=== PATIENT | male | born 2005 | race Two or more races ===

== ENCOUNTER 2023-10-16 17:34 | Emergency (ER) | payer OTHER, SELFPAY ==
--- NOTE | 2023-10-16 18:03 | ED_ITS ---
HPI - Chest Pain General Chief Complaint: Arrhythmia/Palpitations Stated Complaint: irregular heart beat Related Data Allergies Allergy/AdvReac Type Severity Reaction Status Date / Time amoxicillin Allergy Unknown Verified 10/16/23 18:07 [facility] Social History Social History Advance Directives: No Advance Directives Information Provided: No Physical Exam 2 Vital Signs: Vital Signs: Last Vital Signs Temp 96.8 F 10/16/23 18:05 Pulse 68 10/16/23 18:05 Resp 18 10/16/23 18:05 BP 110/75 10/16/23 18:05 Pulse Ox 99 10/16/23 18:05 O2 Del Method Room Air 10/16/23 18:05 BMI result Body Mass Index 20.5 Course Course Course Narrative: RME: 18 yo M w/ no sig PMHx presenting to the ED c/o palpitations & sharp substernal CP x today. constant when started, but now resolved. admits to assoc SOB EKG, labs, CXR ordered Full HPI, ROS and PE to be performed by primary ED provider. Medical Decision Making Lab Data 10/16/23 17:48 10/16/23 17:48 Labs: Lab Results 10/16/23 Range/Units 17:48 WBC 7.3 (4.8-10.8) X10*3/uL RBC 4.57 L (4.60-5.80) X10*6/uL Hgb 14.1 (14.0-18.0) g/dl Hct 38.9 L (42.0-52.0) % MCV 85.1 (80.0-98.0) fL MCH 30.9 (27.0-33.0) pg MCHC 36.2 H (31.0-36.0) g/dl RDW 11.8 (11.0-16.0) % Plt Count 233 (160-400) X10*3/uL MPV 9.9 (9.4-12.4) fL Immature Gran % (Auto) 0.1 (0.0-0.4) % Neut % (Auto) 57.7 (45-73) % Lymph % (Auto) 30.0 (20-40) % [place] % (Auto) 8.6 (2-11) % Eos % (Auto) 2.6 (0-4) % Baso % (Auto) 1.0 (0-2) % Lymph # (Auto) 2.2 (1.2-4.9) X10*3/uL [place] # (Auto) 0.6 (0.1-1.2) X10*3/uL Eos # (Auto) 0.2 (0.0-0.4) X10*3/uL Baso # (Auto) 0.1 (0.0-0.2) X10*3/uL Abs Immat Gran (auto) 0.01 (0.00-0.03) X10*3/uL Absolute Neuts (auto) 4.2 (2.0-8.3) x10*3/uL Absolute Nucleated RBC 0.000 (0.0-0.012) X10*3/uL Nucleated RBC % (auto) 0.0 (0.0-0.2) /100WBC Sodium 141 (135-145) mmol/L Potassium 4.0 (3.3-5.1) mmol/L Chloride 108 (96-108) mmol/L Carbon Dioxide 27 (22-29) mmol/L Anion Gap 10 L (12-20) BUN 14 (9-16) mg/dL Creatinine 0.81 (0.5-1.4) mg/dL Estim Creat Clear Calc 118.5 Estimated GFR > 60 Random Glucose 93 (60-115) mg/dL Calcium 9.5 (8.4-10.2) mg/dL Magnesium 2.0 (1.6-2.6) mg/dL Total Bilirubin 0.3 (0.0-1.0) mg/dL Direct Bilirubin 0.1 (0.0-0.5) mg/dL AST 19 (5-37) U/L ALT 11 (0-40) U/L Alkaline Phosphatase 101 (39-117) U/L Troponin I High Sens < 2.7 (<3.5-35.0) ng/L Total Protein 7.3 (6.5-8.0) g/dL Albumin 4.5 (3.5-5.0) g/dL TSH 1.50 (0.32-4.0) uIU/mL Discharge Plan Discharge Clinical Impression: Palpitations Patient Disposition: Left W/O Completing Treatment Stand Alone Forms: Against Medical Advice Discharge Date/Time: 10/16/23 21:31
[2023-10-16 18:05] VITALS: BP 110/75; PULSE 68; RESP 18; TEMP 36; O2SAT 99; BMI 20.5
--- NOTE | 2023-10-16 20:22 | PC.NURSE ---
Adjusting EMILIANA for labs/EKG/reassessment.
== END 2023-10-16 21:31 | disposition left against medical advice (07) ==
PROVIDERS: Emergency Provider Emergency Medicine
DX: R00.2 Palpitations (principal); R07.9 Chest pain, unspecified
CPT/HCPCS: 36415; 71045; 80048; 80076; 83735; 84443; 84484; 85025; 93005; 99283

== ENCOUNTER → 2023-10-16 17:36 | Outpatient (BNV) | payer OTHER, SELFPAY | PROVIDERS: Emergency Provider Emergency Medicine; Visit Provider Internal Medicine Cardiovascular Disease | DX: R07.9 Chest pain, unspecified (principal) | CPT/HCPCS: 93010 ==

== ENCOUNTER 2025-05-02 14:28 | Emergency (ER) | payer SELFPAY ==
--- NOTE | ~2025-05-02 | XR_ITS ---
CLINICAL HISTORY: cp 2 view chest x-ray Comparison: CR/SR - XR CHEST 2 VIEWS - 10/16/23 18:28 EST Findings: There is bronchial wall thickening. No consolidation, pleural effusion or pneumothorax. Normal size heart. No acute fracture. IMPRESSION: 1. Mild central bronchial wall thickening, which can be seen with asthma, reactive airways process or viral illness. 2. No superimposed infiltrate or consolidation. This document has been electronically signed by: Nasrin Figueroa DO on 05/02/2025 15:37:04
--- NOTE | 2025-05-02 14:31 | ECG_ITS ---
Test Reason : cp Blood Pressure : */* mmHG Vent. Rate : 101 BPM Atrial Rate : 101 BPM P-R Int : 122 ms QRS Dur : 80 ms QT Int : 310 ms P-R-T Axes : 77 94 23 degrees QTcB Int : 401 ms Sinus tachycardia Rightward axis Nonspecific T wave abnormality Abnormal ECG When compared with ECG of 16-Oct-2023 17:42, T wave inversion now evident in Inferior leads Nonspecific T wave abnormality now evident in Lateral leads Referred By: Generic ED Physician Electronically Signed By: Emil Eldridge
[2025-05-02 15:03] VITALS: BP 128/77; PULSE 102; RESP 16; TEMP 36.8; O2SAT 100; BMI 20.4
--- NOTE | 2025-05-02 15:04 | ED_ITS ---
HPI - Chest Pain General Chief Complaint: Chest Pain Stated Complaint: Chest pain Time Seen by Provider: 05/02/25 16:25 Source: patient Mode of arrival: ambulatory Limitations: no limitations History of Present Illness ED Provider: Angela Lewis PA-C HPI narrative: Patient is a 20 year old male with no past medical history presenting to ER on 05/02 with chief complaint of episodic fast heart rate, left sided chest pain, and epigastric pain since last night; ongoing issue for about 3 years. The episodes are associated with dizziness, shortness of breath, and they make him anxious. They last for about 1 minute at a time. He had 2 episodes last night and 1 episode today. He reports he has been getting these episodes multiple times per year for about 3 years. There tends to be a severe episode where the patient feels like he is going to once yearly, followed by less severe episodes in the following weeks, then will disappear for months at a time. He has never lost consciousness due to these episodes. Sometimes the episodes come on randomly, other times they seem to be triggered by exhaustion or stress. He notices that holding his breath and tensing his muscles help the symptoms go away. He has a PCP but does not follow regularly with them, PCP unaware and he has never had cardiology workup. He uses alcohol a few times per month. He has never vaped or smoked cigarettes. He has never used recreational drugs including cocaine. He denies any family history, other than fatal [place] in his paternal grandfather at an old age. He takes no medications. He denies nausea, vomiting, abdominal pain, diarrhea, genitourinary complaints, or any other symptoms. Timing of current episode: episodic Related Data Previous Rx's ?Medication ?Instructions ?Recorded prednisone 20 mg tablet 20 mg PO DAILY 7 days #7 tab s 05/02/25 Allergies Allergy/AdvReac Type Severity Reaction Status Date / Time amoxicillin Allergy Unknown Verified 05/02/25 15:05 Review of Systems 2 Constitutional: Constitutional: Reports as per HPI, Reports no additional constitutional complaints, Denies chills, Denies fever(s) and Denies night sweats Eyes: Eyes: Reports no additional eye complaints, Denies blurry vision, Denies change in vision, Denies diplopia, Denies eye discharge, Denies loss of vision and Denies eye pain ENT: Denies dizziness Cardiovascular: Cardiovascular: Reports no additional cardiovascular complaints, Reports chest pain (now resolved), Reports Epigastric Pain (now resolved), Reports lightheadedness (now resolved), Denies Loss of Consciousness and Reports dyspnea (now resolved) Respiratory: Respiratory: Reports no additional respiratory complaints and Reports dyspnea (now resolved) Gastrointestinal: Gastrointestinal: Reports no additional gastrointestinal complaints, Denies abdominal pain, Denies melena, Denies hematochezia, Denies change in bowel habits and Denies change in stool character Genitourinary: Genitourinary: Reports no additional male genitourinary complaints, Denies hematuria, Denies oliguria, Denies difficulty urinating, Denies dysuria, Denies urinary frequency, Denies urinary hesitancy, Denies urinary incontinence and Denies urinary urgency Musculoskeletal: Musculoskeletal: Reports no additional musculoskeletal complaints, Denies numbness and Denies tingling Neurologic: Denies dizziness, Denies loss of vision, Denies numbness and Denies tingling Psychiatric: Psychiatric: Reports no additional psychiatric complaints Endocrine: Endocrine: Reports no additional endocrine complaints Hematologic/Lymphatic: Hematologic/Lymphatic: Reports no additional hematologic/lymphatic complaints Allergic/Immunologic: Allergic/Immunologic: Reports no additional allergic/immunologic complaints [facility] Past Medical History Attestation statement: The following information was validated with the patient. Source: old records reviewed and nursing notes reviewed Social History Social History Unable to assess alcohol history related to: Unknown Advance Directives: No Advance Directives Information Provided: No Do you have a plan to hurt others: No Plan Physical Exam 2 Vital Signs: Vital Signs: Last Vital Signs Temp 97.8 F 05/02/25 17:59 Pulse 88 05/02/25 17:59 Resp 17 05/02/25 17:59 BP 123/81 05/02/25 17:59 Pulse Ox 98 05/02/25 17:59 O2 Del Method Room Air 05/02/25 17:59 BMI result Body Mass Index 20.4 Const: General: cooperative, no acute distress, alert, awake and anxious N utritional Appearance: well nourished Orientation/consciousness: patient oriented x3 HEENT: Head: Yes normal to inspection and Yes atraumatic Ears: hearing grossly normal bilaterally and external ears normal General nose exam: Normal external nose present, no nasal discharge noted and no epistaxis Face and sinus: Yes normal facial exam, No abrasion and No laceration Mouth: Normal oral and palatal mucosa present, no drooling and no muffled voice Eyes: General: appearance normal, both eyes and all related structures P eriorbital: periorbital findings normal Eyelids: Yes eyelids normal C onjunctivae: conjunctivae normal Pupils: Equal, round and reactive pupils present EOM: EOMs intact bilaterally Neck: Neck: Yes normal visual inspection, Yes full ROM and Yes no lymphadenopathy Resp: Effort & Inspection: normal respiratory effort and able to speak in complete sentences Auscultation: clear to auscultation bilaterally Cardio: Rate: regular rate Rhythm: regular rhythm Heart sounds: S1 normal heart sound present and S2 normal heart sound present Neuro: General: patient oriented x3, moves all extremities and CN's II-XI intact bilaterally Cranial nerves: Yes Equal, round and reactive pupils present Cognition (Neuro): normal cognition Extrem: General: Yes normal to inspection, Yes full ROM and Yes capillary refill normal Psych: Appearance: grossly normal Mental Status: mental status grossly normal Affect: normal affect Attitude: cooperative Thought process: N ormal thought process present Thought content: Normal thought content present Insight: Good insight present (Psych) Course Course Course Narrative: Micheline Mcnairmaria del rosario WAREHOUSE CLERK 05/02 6472 This is a rapid medical exam. Defer additional HPI, ROS, PE to primary provider. 20-year-old male healthy here with complaints of chest pain since last evening. Will obtain EKG, labs, CXR VSS Medical Decision Making Medical Decision Making MDM Narrative: Patient is a 20 year old assigned male at with no reported medical history presenting to the emergency department today with now resolved chest pain, lightheadedness, shortness of breath, and palpitations. Patient's physical exam was unremarkable. Patient's blood work was unremarkable. Patient's EKG was unremarkable. Patient's chest x-ray showed evidence of reactive airway disease vs. asthma. Patient's clinical presentation is most consistent with reactive airway disease. I explained my physical exam findings as well as all test results to the patient. I answered all questions asked by the patient. I stressed the importance of the patient taking his medication as directed (either prescribed or as the over the counter packaging recommends). I stressed the importance of the patient following up with his primary care provider. I stressed the importance of the patient returning to the emergency department immediately if his symptoms were to worsen or if he were to develop any dizziness, shortness of breath, difficulty breathing, chest pain, blurry vision, loss of vision, nausea, vomiting, abdominal pain, fever, chills, back pain, or any other complaints. Patient verbalized agreement and understanding with this treatment plan and discharge. Differential Diagnosis Differential Diagnoses: The differential diagnosis associated with the presentation includes Reactive airway disease Chest pain Atypical chest pain Admission/Observation Consideration of admission/observation: Escalation of care including admission/observation considered Patient would have been admitted to the hospital had his work up had any findings where hospital admission was appropriate and his clinical presentation warranted hospital admission. Lab Data [facility] Lab Attestation statement: I reviewed the patient's lab results. My interpretation of these results are in the [facility] Rationale portion of this note. 05/02/25 15:23 05/02/25 15:23 Labs: Lab Results 05/02/25 05/02/25 Range/Units 15:23 17:09 WBC 7.6 (4.8-10.8) X10*3/uL RBC 5.27 (4.60-5.80) X10*6/uL Hgb 16.2 (14.0-18.0) g/dl Hct 44.8 (42.0-52.0) % MCV 85.0 (80.0-98.0) fL MCH 30.7 (27.0-33.0) pg MCHC 36.2 H (31.0-36.0) g/dl RDW 11.9 (11.0-16.0) % Plt Count 273 (160-400) X10*3/uL MPV 9.6 (9.4-12.4) fL Immature Gran % (Auto) 0.1 (0.0-0.4) % Neut % (Auto) 66.2 (45-73) % Lymph % (Auto) 20.8 (20-40) % [place] % (Auto) 11.3 H (2-11) % Eos % (Auto) 0.9 (0-4) % Baso % (Auto) 0.7 (0-2) % Lymph # (Auto) 1.6 (1.2-4.9) X10*3/uL [place] # (Auto) 0.9 (0.1-1.2) X10*3/uL Eos # (Auto) 0.1 (0.0-0.4) X10*3/uL Baso # (Auto) 0.1 (0.0-0.2) X10*3/uL Abs Immat Gran (auto) 0.01 (0.00-0.03) X10*3/uL Absolute Neuts (auto) 5.1 (2.0-8.3) x10*3/uL Absolute Nucleated RBC 0.000 (0.0-0.012) X10*3/uL Nucleated RBC % (auto) 0.0 (0.0-0.2) /100WBC D-Dimer High Sensitivty < 150 NG/ML Sodium 141 (135-145) mmol/L Potassium 4.1 (3.3-5.1) mmol/L Chloride 106 (96-108) mmol/L Carbon Dioxide 25 (22-29) mmol/L Anion Gap 14 (12-20) BUN 13 (9-16) mg/dL Creatinine 0.88 (0.5-1.4) mg/dL Estim Creat Clear Calc 109.8 Estimated GFR > 60 Random Glucose 96 (60-115) mg/dL Calcium 9.8 (8.4-10.2) mg/dL Total Bilirubin 0.9 (0.0-1.0) mg/dL Direct Bilirubin 0.3 (0.0-0.5) mg/dL AST 26 (5-37) U/L ALT 18 (0-40) U/L Alkaline Phosphatase 104 (39-117) U/L Troponin I High Sens < 2.7 (<3.5-35.0) ng/L Total Protein 7.4 (6.5-8.0) g/dL Albumin 4.9 (3.5-5.0) g/dL Independent Interpretation I performed an independent interpretation of an: EKG and Plain X-Ray Interpretation: My interpretation is in agreement with the radiologist's impression of this imaging study. L CLINICAL HISTORY: cp 2 view chest x-ray Comparison: CR/SR - XR CHEST 2 VIEWS - 10/16/23 18:28 EST Findings: There is bronchial wall thickening. No consolidation, pleural effusion or pneumothorax. Normal size heart. No acute fracture. IMPRESSION: 1. Mild central bronchial wall thickening, which can be seen with asthma, reactive airways process or viral illness. 2. No superimposed infiltrate or consolidation. This document has been electronically signed by: Nasrin Figueroa DO on 05/02/2025 15:37:04 Dictated By: Nasrin Figueroa MD Signed By: Electronically signed by Nasrin Figueroa MD 05/02/25 1538 I independently interpreted this EKG and am in agreement with the below findings: Vent. Rate: 101 BPM Atrial Rate: 101 BPM P-R Int : 122 ms QRS Dur: 80 ms QT Int: 310 ms P-R-T Axes: 77 94 23 degrees QTcB Int: 401 ms Sinus tachycardia Rightward axis Nonspecific T wave abnormality When compared with ECG of 16-Oct-2023 17:42, T wave inversion now evident in Inferior leads Nonspecific T wave abnormality now evident in Lateral leads DD/ 1442 Radiology Impression Discussion of test interpretation with radiology: I have reviewed the radiologist's reading. Discharge Plan Discharge Clinical Impression: Reactive airway disease Qualifiers: Asthma severity: mild Asthma persistence: intermittent Asthma complication type: with acute exacerbation Qualified Code(s): J45.21 - Mild intermittent asthma with (acute) exacerbation Patient Disposition: Home, Self-Care Instructions: How Your Lungs Work (ED) Additional Instructions: Follow up with a primary care provider. Return to the emergency department immediately if your symptoms worsen or if you develop any numbness, tingling, dizziness, shortness of breath, difficulty breathing, chest pain, blurry vision, loss of vision, nausea, vomiting, abdominal pain, fever, chills, back pain, or any other complaints. L If you do not have a primary care provider - call any of the below numbers to establish and follow up with a primary care provider. [facility] Primary Care ([place]) [phone] [place] [address], [address] [facility] Primary Care ([facility]) [phone] [place] [address], [address] [facility], [address] [facility] Primary Care ([address]) [phone] [address] [facility], [address] [place], [address] [facility] Primary Care ([place]) [phone] [place] [address], [address] [place], [address] [facility] Family Medicine [phone] [address] [facility], [address] Please see the information below about our Patient Portal. If you are not yet enrolled in the [facility] Patient Portal, you will receive an enrollment email invitation following your visit to any [facility] setting. You may also self-enroll in the Patient Portal by visiting our website: [email or web address] The following information is required to access the Patient Portal: - Your [facility] Medical Record Number - Your personal home email address (must match what is in your electronic medical record, Registration staff can assist with this) - Name - Date of Capabilities of the Patient Portal: - Message some providers - View upcoming appointments - Access your health summary, medical history, and visit history - View current conditions and allergies - View procedure and lab results - View your medications, including guidelines, side effects, and precautions - Complete pre-appointment questionnaires requested by your provider - Ready summary reports of your office visits and procedures To access the Patient Portal Mobile [place], follow these directions: - Search [employer] in the [place] Store or [employer] Store - Download the [place] - Search for [facility] - Enter your login/password Prescriptions: New prednisone 20 mg tablet 20 mg PO DAILY 7 Days Qty: 7 0RF Interventions: ED Discharge Assessment Last Done: 05/02/25 17:59 Discharge Date/Time: 05/02/25 18:00 Print Language: Sinhala
[2025-05-02 15:26] LABS: MANUAL DIFF FLAG NO
[2025-05-02 15:30] LABS: Hematocrit 44.8 % (42.0-52.0); Hemoglobin 16.2 g/dl (14.0-18.0); Imm Gran Abs Auto 0.01 X10*3/uL (0.00-0.03); Imm Gran Pct Auto 0.1 % (0.0-0.4); Lymphocytes Absolute Auto 1.6 X10*3/uL (1.2-4.9); Mean Corpuscular HGB Conc 36.2 g/dl (31.0-36.0); Mean Corpuscular Hemoglobin 30.7 pg (27.0-33.0); Mean Corpuscular Volume 85.0 fL (80.0-98.0); NRBC Abs Auto 0.000 X10*3/uL (0.0-0.012); NRBC Pct Auto 0.0 /100WBC (0.0-0.2); Platelet Count 273 X10*3/uL (160-400); Red Blood Count 5.27 X10*6/uL (4.60-5.80); White Blood Count 7.6 X10*3/uL (4.8-10.8)
[2025-05-02 15:46] LABS: Alanine Aminotransferase 18 U/L (0-40); Albumin Level 4.9 g/dL (3.5-5.0); Alkaline Phosphatase 104 U/L (39-117); Anion Gap 14 (12-20); Aspartate Amino Transferase 26 U/L (5-37); Blood Urea Nitrogen 13 mg/dL (9-16); Calcium 9.8 mg/dL (8.4-10.2); Carbon Dioxide 25 mmol/L (22-29); Chloride 106 mmol/L (96-108); Creatinine Clr Calc Pharmacy 109.8; Estimated Glomerular Filt Rate > 60; Potassium 4.1 mmol/L (3.3-5.1); Sodium 141 mmol/L (135-145); Total Protein 7.4 g/dL (6.5-8.0)
[2025-05-02 15:55] LABS: Troponin-I High Sensitivity < 2.7 ng/L (<3.5-35.0)
[2025-05-02 16:29] VITALS: BP 123/81; PULSE 101; RESP 14; O2SAT 97
--- NOTE | 2025-05-02 17:02 | PC.NURSE ---
Pt to ED for intermittent chest pain, non radiating 04/22. A/O x 3, calm/cooperative with care and answering questions appropriately. States shortness of breath when chest pain occurs. Placed on bedside monitor, NSR/sinus tach. #20 placed to LFA. Labs pending..
[2025-05-02 17:39] LABS: D Dimer High Sensitivity < 150 NG/ML
[2025-05-02 17:51] VITALS: BP 123/81; PULSE 88; RESP 17; TEMP 36.6; O2SAT 98
[2025-05-02 17:59] VITALS: BP 123/81; PULSE 88; RESP 17; TEMP 36.6; O2SAT 98
== END 2025-05-02 18:00 | disposition home or self-care (01) ==
PROVIDERS: Physician Assistant Medical; Emergency Provider Emergency Medicine; Referring Provider Nurse Practitioner Family
DX: J45.21 Mild intermittent asthma with (acute) exacerbation (principal); R07.89 Other chest pain; R10.13 Epigastric pain
CPT/HCPCS: 36415; 71046; 80048; 80076; 84484; 85025; 85379; 93005; 99283; 99285

== ENCOUNTER → 2025-05-02 14:31 | Outpatient (BNV) | payer SELFPAY | PROVIDERS: Emergency Provider Emergency Medicine; Visit Provider Internal Medicine Cardiovascular Disease | DX: R00.0 Tachycardia, unspecified (principal) | CPT/HCPCS: 93010 ==

== ENCOUNTER → 2025-05-02 15:05 | Outpatient (BNV) | payer SELFPAY | PROVIDERS: Visit Provider Radiology Diagnostic Radiology | DX: R07.9 Chest pain, unspecified (principal) | CPT/HCPCS: 71046 ==